=== PATIENT | female | born 1955 | race Caucasian/White ===

== ENCOUNTER 2025-08-12 06:34 | Outpatient (CLI) | payer MEDICARE, BC, SELFPAY ==
--- NOTE | 2025-08-12 08:00 | P.ANES_ITS ---
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
--- NOTE | 2025-08-12 08:00 | W.ANESCHARGE ---
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
== END 2025-08-12 06:35 | disposition home or self-care (01) ==
LOC: OP CLINIC 06:43
PROVIDERS: PCP Family Medicine; Visit Provider Internal Medicine Gastroenterology
DX: Z12.11 Encounter for screening for malignant neoplasm of colon (principal); K57.30 Diverticulosis of large intestine without perforation or abscess without bleeding; Z86.0101 Personal history of adenomatous and serrated colon polyps
CPT/HCPCS: 00812; 45378; 99100; J2704